=== PATIENT | female | born 1975 | race Caucasian/White ===

== ENCOUNTER 2024-12-13 06:08 | Inpatient (IN) | payer MEDICAID ==
[2024-12-13] VITALS (16 sets, daily range): BP systolic 87–124; BP diastolic 64–80; PULSE 68–118; RESP 13–27; TEMP 36.5–36.8628; O2SAT 88–98
[~2024-12-13] VITALS: Ht 167.6 cm; Wt 77.1 kg
[~2024-12-13 06:08] MED LIST: AMIO100T4 GT; AMLO5TAB6 PO; ATROV3 NS; BISA10SU62 RC; CHLO3800 TP; CRAN450T10 GT; DOCU100T GT; DORZ10DR8 EACHEYE; FAMO-135 PO; GLYC30DR4 EACHEYE; KEPPSOL GT; MOM MT; MULT-1146 GT; SIME80TA15 MT; TOPUD PO; ZINC113C10 TP
[2024-12-13] MEDS ORDERED: LORAZEPAM 2MG/ML UD SYRINGE ONE (06:20)
[2024-12-13] MEDS: LORAZEPAM 2MG/ML UD SYRINGE IV NR (06:22)
[2024-12-13] MEDS: SODIUM CHLORIDE 0.9% 1,000 ML IV ONE (06:26)
[2024-12-13] MEDS: PIPERACILLIN/TAZO 3.375G/50ML 50 ML IV ONE (06:28)
[2024-12-13] MEDS ORDERED: VANCOMYCIN 1G PREMIX 200 ML IV SCH (06:45)
[2024-12-13 06:51] LABS: BASOPHILS % 0.5 % (0.0-2.0); EOSINOPHILS % 1.0 % (0.0-5.0); HEMATOCRIT. 34.9 % (36.0-48.0); HEMOGLOBIN. 11.0 g/dL (12.0-16.0); LYMPHOCYTES % 13.3 % (20.0-50.0); MEAN PLATELET VOLUME 9.8 fl (7.4-10.4); MONOCYTES % 4.4 % (2.0-8.0); NEUTROPHILS % 80.8 % (40.0-76.0); PLATELET 504 x1000/uL (130-400); RED BLOOD CELL COUNT 3.73 mill/uL (4.2-5.4); RED CELL DISTRIBUTION WIDTH 18.5 % (11.6-14.6)
[2024-12-13] MEDS: VANCOMYCIN 1G PREMIX 200 ML IV ONE (07:04)
[2024-12-13] MEDS ORDERED: ONDANSETRON HCL 4MG/2ML INJ IV PRN (07:15)
[2024-12-13 07:20] LABS: BG BASE EXCESS 3.9 mmol/L (-2.0-3.0); BG CARBOXYHEMOGLOBIN 0.1 % (0.5-1.5); BG DEOXYHEMOGLOBIN 1.4 % (0.0-5.0); BG FRACTION INSPIRED OXYGEN 100; BG HCO3 ACT 29.4 mmol/L (21.0-28.0); BG METHEMOGLOBIN 0.6 % (0.5-1.5); BG OXYGEN SATURATION 98.6 % (94.0-98.0); BG OXYHEMOGLOBIN 97.9 % (94.0-98.0); BG PCO2 48.6 mmHg (32.0-45.0); BG PEEP (cmH2O) 5.0 cmH2O; BG PH 7.399 (7.350-7.450); BG PO2 133.4 mmHg (83.0-108.0); BG SAMPLE SITE RIGHT RADIAL; BG TIDAL VOLUME(mL) 450.0 mL; BG TOTAL HEMOGLOBIN 10.7 g/dL (12.0-16.0); BG VENT MODE VENT - AC; BG VENT RATE 20.0 set
[2024-12-13] MEDS: ACETAMINOPHEN 325MG TABLET GT NR (07:29)
[2024-12-13 07:30] LABS: CREATININE 0.8 mg/dL (0.6-1.0); UREA NITROGEN BLOOD 12 mg/dL (9-23)
[2024-12-13 07:32] LABS: ASPARTATE AMINOTRANSFERASE 70 IU/L (<34); BILIRUBIN DIRECT 0.2 mg/dL (<=3.0); BILIRUBIN TOTAL 0.4 mg/dL (0.1-1.0); PROTEIN TOTAL 8.1 g/dL (6.0-8.3)
[2024-12-13 08:12] LABS: INR 1.0
[2024-12-13] MEDS ORDERED: PANTOPRAZOLE SODIUM 40 MG/VIAL IV SCH (09:00)
[2024-12-13] MEDS: METHYLPREDNISOLONE SOD SUCC 40MG/ML (ACT-O-VIAL) IV SCH ×2 (10:00→16:54)
[2024-12-13] MEDS ORDERED: MAGNESIUM/ALUMINUM HYDROXIDE/SIMETHICONE 30ML UDC PO PRN (10:00)
[2024-12-13] MEDS: AMLODIPINE 5MG TABLET PO SCH (10:00)
[2024-12-13] MEDS ORDERED: NALOXONE HCL 0.4MG/ML VIAL IV PRN (10:00)
[2024-12-13] MEDS ORDERED: MORPHINE SULFATE 4 MG/ML INJ (FOR IV/IM USE) IV PRN (10:00)
[2024-12-13] MEDS: PANTOPRAZOLE SODIUM 40 MG/VIAL IV SCH (10:12)
[2024-12-13] MEDS: SODIUM CHLORIDE 0.9% 1,000 ML IV SCH (10:12)
[2024-12-13] MEDS: ENOXAPARIN 40MG/0.4ML SYR SUBCUT SCH (10:13)
[2024-12-13] MEDS: PIPERACILLIN/TAZO 3.375G/50ML 50 ML IV SCH (10:21)
[2024-12-13] MEDS: LEVETIRACETAM 500MG/5ML CUP GT SCH (10:58)
[2024-12-13] MEDS: AMIODARONE 200MG TABLET PO SCH (10:58)
[2024-12-13] MEDS: DOXYCYCLINE 100MG/100ML 100 ML IV SCH ×2 (11:39→21:30)
[2024-12-13] MEDS: DORZOLAMIDE 2% OPHTH 10 ML BOTTLE EACHEYE SCH (13:25)
[2024-12-13] MEDS ORDERED: PIPERACILLIN/TAZO 3.375G/50ML 50 ML IV SCH (14:00)
[2024-12-13 14:50] LABS: CLARITY URINE CLEAR (CLEAR); COLOR URINE YELLOW (YELLOW); GLUCOSE URINE NEGATIVE (NEGATIVE); KETONES URINE NEGATIVE (NEGATIVE); PH URINE 5.5 (4.5-8.0); PROTEIN URINE NEGATIVE (NEGATIVE); SPECIFIC GRAVITY URINE 1.035 (1.005-1.030)
[2024-12-13 14:51] LABS: LEUKOCYTE ESTERASE URINE NEGATIVE (NEGATIVE); NITRITE URINE NEGATIVE (NEGATIVE); OCCULT BLOOD URINE NEGATIVE (NEGATIVE); UROBILINOGEN URINE 0.2 E.U./dL (0.2-1.0)
[2024-12-13 15:03] LABS: *AMPHETAMINES SCREEN URINE NEGATIVE (NEGATIVE); *BARBITURATES SCREEN URINE NEGATIVE (NEGATIVE); *BENZODIAZEPINES SCREEN URINE NEGATIVE (NEGATIVE); *COCAINE SCREEN URINE NEGATIVE (NEGATIVE); METHADONE URINE SCREEN NEGATIVE (NEGATIVE); OPIATES URINE SCREEN NEGATIVE (NEGATIVE); PHENCYCLIDINE URINE SCREEN NEGATIVE (NEGATIVE)
[2024-12-13 15:04] LABS: CANNABINOID URINE SCREEN NEGATIVE (NEGATIVE); ECSTASY MDMA SCREEN URINE NEGATIVE (NEGATIVE)
[2024-12-13] MEDS: FUROSEMIDE 40MG/4ML VIAL IVP NR (16:55)
[2024-12-13] MEDS: IPRATROPIUM/ALBUTEROL 0.5-3(2.5)MG/3ML NEB HHN SCH (20:30)
[2024-12-13] MEDS: BUDESONIDE 0.5MG/2ML NEB HHN SCH (20:31)
[2024-12-13] MEDS ORDERED: ZOLPIDEM TARTRATE 5MG TABLET PO PRN (21:00)
[2024-12-13] MEDS: ONDANSETRON HCL 4MG/2ML INJ IV PRN (21:20)
[2024-12-13] MEDS: LACTULOSE 20G/30ML UDC PO SCH (21:20)
[2024-12-13] MEDS: VANCOMYCIN 1G PREMIX 200 ML IV SCH (21:23)
[2024-12-13 22:55] LABS: CREATINE KINASE MB FRACTION < 0.5 ng/mL (0.5-3.6); TROPONIN I HIGH SENSITIVITY 6 ng/L (3.0-34)
[2024-12-14] VITALS (22 sets, daily range): BP systolic 98–144; BP diastolic 67–95; PULSE 74–102; RESP 2–23; TEMP 36.3–37.6; O2SAT 93–99
[2024-12-14] MEDS: METOCLOPRAMIDE HCL 10MG/2ML VIAL IV SCH (00:40)
[2024-12-14] MEDS: SODIUM CHLORIDE 0.9% FOR INH 3ML VIAL NEB INH SCH (00:44)
[2024-12-14] MEDS: ACETYLCYSTEINE 200MG/ML 20% VIAL 4ML INH SCH (00:45)
[2024-12-14] MEDS: IPRATROPIUM/ALBUTEROL 0.5-3(2.5)MG/3ML NEB HHN NR (02:32)
[2024-12-14] MEDS: CLONIDINE 0.1MG TABLET PO PRN (05:49)
[2024-12-14] MEDS ORDERED: METOCLOPRAMIDE HCL 10MG/2ML VIAL IV SCH (06:00)
[2024-12-14 06:43] LABS: TROPONIN I HIGH SENSITIVITY 7 ng/L (3.0-34)
[2024-12-14 06:44] LABS: HEMATOCRIT. 29.7 % (36.0-48.0); HEMOGLOBIN. 9.6 g/dL (12.0-16.0); MEAN PLATELET VOLUME 9.8 fl (7.4-10.4); PLATELET 397 x1000/uL (130-400); RED BLOOD CELL COUNT 3.19 mill/uL (4.2-5.4); RED CELL DISTRIBUTION WIDTH 18.4 % (11.6-14.6)
[2024-12-14 06:48] LABS: CREATINE KINASE MB FRACTION < 0.5 ng/mL (0.5-3.6)
[2024-12-14 07:31] LABS: INFLUENZA TYPE A Presumptive Negative (Pres. Neg.)
[2024-12-14 07:32] LABS: INFLUENZA TYPE B Presumptive Negative (Pres. Neg.)
[2024-12-14 07:33] LABS: RESPIRATORY SYNCYTIAL VIRUS Not Detected (Not Detectd)
[2024-12-14 09:45] LABS: BG BASE EXCESS 1.9 mmol/L (-2.0-3.0); BG CARBOXYHEMOGLOBIN 0.6 % (0.5-1.5); BG DEOXYHEMOGLOBIN 2.6 % (0.0-5.0); BG FRACTION INSPIRED OXYGEN 90; BG HCO3 ACT 25.5 mmol/L (21.0-28.0); BG METHEMOGLOBIN 0.4 % (0.5-1.5); BG OXYGEN SATURATION 97.4 % (94.0-98.0); BG OXYHEMOGLOBIN 96.4 % (94.0-98.0); BG PCO2 36.0 mmHg (32.0-45.0); BG PEEP (cmH2O) 5.0 cmH2O; BG PH 7.468 (7.350-7.450); BG PO2 90.5 mmHg (83.0-108.0); BG SAMPLE SITE RIGHT RADIAL; BG TIDAL VOLUME(mL) 450.0 mL; BG TOTAL HEMOGLOBIN 10.8 g/dL (12.0-16.0); BG VENT MODE VENT - AC; BG VENT RATE 20.0 set
[2024-12-14 20:49] LABS: LYMPHOCYTES % MANUAL 1.0 % (20.0-60.0); MONOCYTES % MANUAL 8.0 % (2.0-8.0); NEUTROPHILS % MANUAL 91.0 % (45.0-75.0); PLATELET ESTIMATE NORMAL
[2024-12-15] VITALS (20 sets, daily range): BP systolic 122–158; BP diastolic 76–88; PULSE 70–93; RESP 16–24; TEMP 36.9–37.7; O2SAT 92–99
[2024-12-15 07:56] LABS: BASOPHILS % 0.2 % (0.0-2.0); EOSINOPHILS % 0.0 % (0.0-5.0); HEMATOCRIT. 26.5 % (36.0-48.0); HEMOGLOBIN. 8.7 g/dL (12.0-16.0); LYMPHOCYTES % 7.3 % (20.0-50.0); MEAN PLATELET VOLUME 9.1 fl (7.4-10.4); MONOCYTES % 4.3 % (2.0-8.0); NEUTROPHILS % 88.2 % (40.0-76.0); PLATELET 477 x1000/uL (130-400); RED BLOOD CELL COUNT 2.88 mill/uL (4.2-5.4); RED CELL DISTRIBUTION WIDTH 18.4 % (11.6-14.6)
[2024-12-15 08:10] LABS: CREATININE 0.6 mg/dL (0.6-1.0); UREA NITROGEN BLOOD 9 mg/dL (9-23)
[2024-12-15 08:25] LABS: FOLIC ACID (FOLATE) SERUM > 20.00 ng/mL (>5.38)
[2024-12-15 08:46] LABS: VITAMIN B12 SERUM > 2000 pg/mL (211-911)
[2024-12-15] MEDS ORDERED: POTASSIUM CHLORIDE 40 MEQ in DEXT 5% WATER 230 ML IV ONE (09:30)
[2024-12-15] MEDS ORDERED: KCL 20MEQ/100ML X 2 FOR TOTAL KCL 40MEQ/200ML IV SCH (09:30)
[2024-12-15] MEDS: KCL 20MEQ/100ML PREMIX 100 ML IV SCH (11:14)
[2024-12-15] MEDS: MINERAL OIL ENEMA 133ML PR SCH (14:00)
[2024-12-15 14:09] LABS: BG BASE EXCESS 2.3 mmol/L (-2.0-3.0); BG CARBOXYHEMOGLOBIN 0.9 % (0.5-1.5); BG DEOXYHEMOGLOBIN 4.1 % (0.0-5.0); BG FRACTION INSPIRED OXYGEN 70; BG HCO3 ACT 26.7 mmol/L (21.0-28.0); BG METHEMOGLOBIN 0.2 % (0.5-1.5); BG OXYGEN SATURATION 95.9 % (94.0-98.0); BG OXYHEMOGLOBIN 94.8 % (94.0-98.0); BG PCO2 40.9 mmHg (32.0-45.0); BG PEEP (cmH2O) 5.0 cmH2O; BG PH 7.433 (7.350-7.450); BG PO2 76.7 mmHg (83.0-108.0); BG SAMPLE SITE RIGHT RADIAL; BG TIDAL VOLUME(mL) 450.0 mL; BG TOTAL HEMOGLOBIN 10.0 g/dL (12.0-16.0); BG VENT MODE VENT - AC; BG VENT RATE 16.0 set
[2024-12-16] VITALS (25 sets, daily range): BP systolic 113–149; BP diastolic 67–90; PULSE 60–107; RESP 15–30; TEMP 36.5–37.1; O2SAT 93–98
[2024-12-16] MEDS: VANCOMYCIN 750MG/150ML (BAXTER) IV SCH (04:45)
[2024-12-16 07:23] LABS: HEMATOCRIT. 28.8 % (36.0-48.0); HEMOGLOBIN. 9.1 g/dL (12.0-16.0); RED BLOOD CELL COUNT 3.09 mill/uL (4.2-5.4); RED CELL DISTRIBUTION WIDTH 18.7 % (11.6-14.6)
[2024-12-16 07:43] LABS: CREATININE 0.6 mg/dL (0.6-1.0)
[2024-12-16 07:45] LABS: UREA NITROGEN BLOOD 10 mg/dL (9-23)
[2024-12-16 08:15] LABS: LYMPHOCYTES % MANUAL 4.0 % (20.0-60.0); MONOCYTES % MANUAL 5.0 % (2.0-8.0); NEUTROPHILS % MANUAL 91.0 % (45.0-75.0); NUCLEATED RED BLOOD CELLS 1 /100 WBC; PLATELET ESTIMATE INCREASED
[2024-12-16 08:17] LABS: PLATELET 570 x1000/uL (130-400)
[2024-12-16] MEDS: ACETAMINOPHEN 325MG TABLET PO PRN (11:33)
[2024-12-16] MEDS: LACTULOSE 20G/30ML UDC PO NR (16:15)
[2024-12-16] MEDS: NA PHOS,M-B/NA PHOS,DI-BA ENEMA 118ML PR SCH (17:18)
[2024-12-16] MEDS: LACTULOSE 20G/30ML UDC PO SCH (18:15)
[2024-12-16] MEDS: SENNOSIDES/DOCUSATE SOD 8.6/50MG TABLET GT SCH (21:00)
[2024-12-16] MEDS: DOCUSATE SODIUM SUGAR FREE 100MG/10ML UDC NG SCH (21:04)
[2024-12-16] MEDS ORDERED: LACTULOSE 20G/30ML UDC PO SCH (22:00)
[2024-12-17] VITALS (20 sets, daily range): BP systolic 117–199; BP diastolic 69–106; PULSE 62–102; RESP 1–36; TEMP 37–37.6; O2SAT 89–98
[2024-12-17 08:22] LABS: HEMATOCRIT. 29.6 % (36.0-48.0); HEMOGLOBIN. 9.1 g/dL (12.0-16.0); MEAN PLATELET VOLUME 8.8 fl (7.4-10.4); PLATELET 579 x1000/uL (130-400); RED BLOOD CELL COUNT 3.19 mill/uL (4.2-5.4); RED CELL DISTRIBUTION WIDTH 18.4 % (11.6-14.6)
[2024-12-17 08:41] LABS: CREATININE 0.7 mg/dL (0.6-1.0); UREA NITROGEN BLOOD 12 mg/dL (9-23)
[2024-12-17] MEDS: POLYETHYLENE GLYCOL 3350 (17GM) 1 DOSE PACK PO SCH (09:48)
[2024-12-17] MEDS ORDERED: KCL 20MEQ/100ML PREMIX 100 ML IV ONE (10:30)
[2024-12-17] MEDS: LACTULOSE 20G/30ML UDC PO SCH (11:29)
[2024-12-17] MEDS: POTASSIUM CHLORIDE 40MEQ in DEXT 5% WATER 250ML IV SCH (11:30)
[2024-12-17] MEDS: HYDROCODONE/ACETAMINOPHEN 5/325MG TABLET PO PRN (12:48)
[2024-12-17] MEDS: MINERAL OIL ENEMA 133ML PR NR (13:31)
[2024-12-17] MEDS: SIMETHICONE 40 MG/0.6 ML 15ML GT SCH (17:41)
[2024-12-17] MEDS ORDERED: VANCOMYCIN 750MG/150ML (BAXTER) IV SCH (18:00)
[2024-12-17 19:04] LABS: LYMPHOCYTES % MANUAL 8.0 % (20.0-60.0); MONOCYTES % MANUAL 6.0 % (2.0-8.0); NEUTROPHILS % MANUAL 86.0 % (45.0-75.0); NUCLEATED RED BLOOD CELLS 1 /100 WBC; PLATELET ESTIMATE MARKEDLY INCREASED
[2024-12-17] MEDS ORDERED: MAGNESIUM SULFATE 1GM/2ML VIAL IM ONE (20:45)
[2024-12-17] MEDS: SODIUM CHLORIDE 3% FOR INH 4ML NEB INH SCH (20:59)
[2024-12-17] MEDS: KCL 20MEQ/100ML PREMIX 100 ML IV SCH (22:41)
[2024-12-17] MEDS: MAGNESIUM 1G PREMIX 100ML IV SCH (23:14)
[2024-12-18] VITALS (19 sets, daily range): BP systolic 124–166; BP diastolic 80–104; PULSE 50–94; RESP 16–62; TEMP 36.7–38; O2SAT 91–98
[2024-12-18 05:12] LABS: CLARITY URINE TURBID (CLEAR); COLOR URINE YELLOW (YELLOW)
[2024-12-18 05:13] LABS: PH URINE 7.0 (4.5-8.0); SPECIFIC GRAVITY URINE 1.020 (1.005-1.030)
[2024-12-18 05:14] LABS: GLUCOSE URINE NEGATIVE (NEGATIVE); KETONES URINE NEGATIVE (NEGATIVE); NITRITE URINE NEGATIVE (NEGATIVE); OCCULT BLOOD URINE 2+ (NEGATIVE); PROTEIN URINE TRACE (NEGATIVE)
[2024-12-18 05:15] LABS: LEUKOCYTE ESTERASE URINE NEGATIVE (NEGATIVE); UROBILINOGEN URINE 1.0 E.U./dL (0.2-1.0)
[2024-12-18] MEDS: KCL 20MEQ/100ML PREMIX 100 ML IV SCH (05:49)
[2024-12-18 06:11] LABS: CREATININE 0.7 mg/dL (0.6-1.0); UREA NITROGEN BLOOD 9 mg/dL (9-23)
[2024-12-18 06:30] LABS: RBC URINE 15-25 /hpf (0-2)
[2024-12-18 06:31] LABS: AMORPHOUS SEDIMENT URINE 2+ /lpf; BACTERIA URINE NONE SEEN; SQUAMOUS EPITHELIAL CELL URINE NONE SEEN /lpf (RARE/1+)
[2024-12-18] MEDS: ACETAMINOPHEN 650MG/20.3ML UDC PO PRN (15:02)
[2024-12-18] MEDS: POTASSIUM CHLORIDE 20MEQ/PACKET GT NR (23:34)
[2024-12-19] VITALS (22 sets, daily range): BP systolic 93–127; BP diastolic 54–88; PULSE 52–87; RESP 16–22; TEMP 36.5–37.9; O2SAT 94–96
[2024-12-19] MEDS: IPRATROPIUM/ALBUTEROL 0.5-3(2.5)MG/3ML NEB HHN SCH (09:31)
[2024-12-19] MEDS: GUAIFENESIN 200MG/10ML SUGAR FREE UDC PO SCH (13:12)
[2024-12-19] MEDS: ACETYLCYSTEINE 200MG/ML 20% VIAL 4ML INH SCH (15:30)
[2024-12-20] VITALS (21 sets, daily range): BP systolic 116–133; BP diastolic 73–90; PULSE 66–92; RESP 16–21; TEMP 36.8–37.5; O2SAT 92–98
[2024-12-20 16:44] LABS: BG BASE EXCESS 5.3 mmol/L (-2.0-3.0); BG CARBOXYHEMOGLOBIN 0.3 % (0.5-1.5); BG DEOXYHEMOGLOBIN 3.4 % (0.0-5.0); BG FRACTION INSPIRED OXYGEN 80; BG HCO3 ACT 30.0 mmol/L (21.0-28.0); BG METHEMOGLOBIN 0.1 % (0.5-1.5); BG OXYGEN SATURATION 96.6 % (94.0-98.0); BG OXYHEMOGLOBIN 96.2 % (94.0-98.0); BG PCO2 44.4 mmHg (32.0-45.0); BG PEEP (cmH2O) 5.0 cmH2O; BG PH 7.447 (7.350-7.450); BG PO2 83.9 mmHg (83.0-108.0); BG SAMPLE SITE RIGHT RADIAL; BG TIDAL VOLUME(mL) 450.0 mL; BG TOTAL HEMOGLOBIN 9.2 g/dL (12.0-16.0); BG VENT MODE VENT - AC; BG VENT RATE 16.0 set
[2024-12-20 19:00] LABS: HEMATOCRIT. 28.5 % (36.0-48.0); HEMOGLOBIN. 9.1 g/dL (12.0-16.0); MEAN PLATELET VOLUME 8.9 fl (7.4-10.4); PLATELET 490 x1000/uL (130-400); RED BLOOD CELL COUNT 3.05 mill/uL (4.2-5.4); RED CELL DISTRIBUTION WIDTH 18.6 % (11.6-14.6)
[2024-12-20 19:13] LABS: CREATININE 0.6 mg/dL (0.6-1.0)
[2024-12-20 19:14] LABS: UREA NITROGEN BLOOD 9 mg/dL (9-23)
[2024-12-20 19:15] LABS: ASPARTATE AMINOTRANSFERASE 11 IU/L (<34)
[2024-12-20 19:16] LABS: BILIRUBIN TOTAL 0.2 mg/dL (0.1-1.0); PROTEIN TOTAL 6.3 g/dL (6.0-8.3)
[2024-12-20 19:28] LABS: HCG SCREEN NEGATIVE
[2024-12-20 19:34] LABS: LYMPHOCYTES % MANUAL 4.0 % (20.0-60.0); MONOCYTES % MANUAL 4.0 % (2.0-8.0); NEUTROPHILS % MANUAL 92.0 % (45.0-75.0); PLATELET ESTIMATE INCREASED
[2024-12-20 19:49] LABS: HEPATITIS A AB IGM NEGATIVE (Negative); HEPATITIS B CORE AB IGM NEGATIVE (Negative)
[2024-12-20 19:50] LABS: HEPATITIS C AB NON REACTIVE (Neg) (Negative)
[2024-12-20] MEDS: SODIUM CHLORIDE 3% FOR INH 4ML NEB INH SCH (20:38)
[2024-12-21] VITALS (27 sets, daily range): BP systolic 107–153; BP diastolic 68–92; PULSE 67–93; RESP 12–38; TEMP 36.9–37.7; O2SAT 93–98
[2024-12-21] MEDS: FERROUS SULFATE 300MG/5ML UDC GT SCH (09:28)
[2024-12-21] MEDS: ASCORBIC ACID 500 MG TABLET GT SCH (09:28)
[2024-12-21 10:55] LABS: HEMATOCRIT. 28.9 % (36.0-48.0); HEMOGLOBIN. 9.1 g/dL (12.0-16.0); MEAN PLATELET VOLUME 8.4 fl (7.4-10.4); PLATELET 487 x1000/uL (130-400); RED BLOOD CELL COUNT 3.09 mill/uL (4.2-5.4); RED CELL DISTRIBUTION WIDTH 18.5 % (11.6-14.6)
[2024-12-21 11:16] LABS: CREATININE 0.6 mg/dL (0.6-1.0)
[2024-12-21 11:17] LABS: UREA NITROGEN BLOOD 9 mg/dL (9-23)
[2024-12-21] MEDS: KCL 20MEQ/100ML PREMIX 100 ML IV SCH ×2 (12:00→21:49)
[2024-12-21] MEDS: SIMETHICONE 80MG TABLET CHEW GT SCH (14:22)
[2024-12-21] MEDS: DEXT 5%/0.9% NACL KCL 20MEQ/L 1,000 ML IV SCH (16:59)
[2024-12-21] MEDS: DIATR MEGLU/DIATRIZOATE SOLN 30ML PO SCH (18:05)
[2024-12-21] MEDS: METOCLOPRAMIDE HCL 10MG/2ML VIAL IV SCH (21:42)
[2024-12-21] MEDS ORDERED: IOHEXOL-350 100 ML BOTTLE ONE (22:43)
[2024-12-21] MEDS ORDERED: IOHEXOL-300 100 ML BOTTLE ONE (22:44)
[2024-12-22] VITALS (26 sets, daily range): BP systolic 105–134; BP diastolic 71–105; PULSE 76–110; RESP 15–26; TEMP 36.7–37.4; O2SAT 87–99
[2024-12-22 08:48] LABS: BG BASE EXCESS 0.6 mmol/L (-2.0-3.0); BG CARBOXYHEMOGLOBIN 1.2 % (0.5-1.5); BG DEOXYHEMOGLOBIN 7.4 % (0.0-5.0); BG FRACTION INSPIRED OXYGEN 60; BG HCO3 ACT 25.3 mmol/L (21.0-28.0); BG METHEMOGLOBIN 0.3 % (0.5-1.5); BG OXYGEN SATURATION 92.5 % (94.0-98.0); BG OXYHEMOGLOBIN 91.1 % (94.0-98.0); BG PCO2 40.9 mmHg (32.0-45.0); BG PEEP (cmH2O) 8.0 cmH2O; BG PH 7.409 (7.350-7.450); BG PO2 65.4 mmHg (83.0-108.0); BG SAMPLE SITE RIGHT RADIAL; BG TIDAL VOLUME(mL) 450.0 mL; BG TOTAL HEMOGLOBIN 9.8 g/dL (12.0-16.0); BG VENT MODE VENT - AC; BG VENT RATE 16.0 set
[2024-12-22] MEDS: SENNOSIDES 8.6MG TABLET GT SCH (09:06)
[2024-12-22 13:10] LABS: HEMATOCRIT. 28.7 % (36.0-48.0); HEMOGLOBIN. 9.1 g/dL (12.0-16.0); MEAN PLATELET VOLUME 8.8 fl (7.4-10.4); PLATELET 521 x1000/uL (130-400); RED BLOOD CELL COUNT 3.06 mill/uL (4.2-5.4); RED CELL DISTRIBUTION WIDTH 18.8 % (11.6-14.6)
[2024-12-22 13:25] LABS: CREATININE 0.6 mg/dL (0.6-1.0)
[2024-12-22 13:26] LABS: UREA NITROGEN BLOOD < 5 mg/dL (9-23)
[2024-12-22 13:59] LABS: LYMPHOCYTES % MANUAL 12.0 % (20.0-60.0); MONOCYTES % MANUAL 13.0 % (2.0-8.0); NEUTROPHILS % MANUAL 75.0 % (45.0-75.0); PLATELET ESTIMATE INCREASED
[2024-12-22] MEDS: KCL 20MEQ/100ML PREMIX 100 ML IV SCH (15:29)
[2024-12-22 16:22] LABS: EOSINOPHILS % MANUAL 7.0 % (0.0-5.0); LYMPHOCYTES % MANUAL 6.0 % (20.0-60.0); MONOCYTES % MANUAL 7.0 % (2.0-8.0); NEUTROPHILS % MANUAL 80.0 % (45.0-75.0); PLATELET ESTIMATE SLIGHTLY INCREASED
[2024-12-23] VITALS (22 sets, daily range): BP systolic 115–144; BP diastolic 76–94; PULSE 79–103; RESP 0–26; TEMP 36.4–37; O2SAT 94–98
[2024-12-23] MEDS ORDERED: POTASSIUM CHLORIDE 20MEQ/PACKET PO SCH (04:15)
[2024-12-23] MEDS: POTASSIUM CHLORIDE 20MEQ/PACKET PO SCH (09:30)
[2024-12-23 12:56] LABS: HEMATOCRIT. 32.2 % (36.0-48.0); HEMOGLOBIN. 9.7 g/dL (12.0-16.0); MEAN PLATELET VOLUME 8.8 fl (7.4-10.4); PLATELET 519 x1000/uL (130-400); RED BLOOD CELL COUNT 3.42 mill/uL (4.2-5.4); RED CELL DISTRIBUTION WIDTH 18.5 % (11.6-14.6)
[2024-12-23 13:09] LABS: CREATININE 0.5 mg/dL (0.6-1.0); UREA NITROGEN BLOOD < 5 mg/dL (9-23)
[2024-12-23 18:08] LABS: EOSINOPHILS % MANUAL 4.0 % (0.0-5.0); LYMPHOCYTES % MANUAL 11.0 % (20.0-60.0); MONOCYTES % MANUAL 3.0 % (2.0-8.0); MYELOCYTES % 2.0 % (0-0); NEUTROPHILS % MANUAL 80.0 % (45.0-75.0); PLATELET ESTIMATE INCREASED
[2024-12-24] VITALS (20 sets, daily range): BP systolic 105–127; BP diastolic 71–91; PULSE 82–108; RESP 14–30; TEMP 36.9–37.8; O2SAT 92–100
[2024-12-24 07:56] LABS: HEMATOCRIT. 30.4 % (36.0-48.0); HEMOGLOBIN. 9.7 g/dL (12.0-16.0); MEAN PLATELET VOLUME 8.7 fl (7.4-10.4); PLATELET 516 x1000/uL (130-400); RED BLOOD CELL COUNT 3.22 mill/uL (4.2-5.4); RED CELL DISTRIBUTION WIDTH 18.7 % (11.6-14.6)
[2024-12-24 08:03] LABS: CREATININE 0.5 mg/dL (0.6-1.0); UREA NITROGEN BLOOD < 5 mg/dL (9-23)
[2024-12-24 09:55] LABS: BG BASE EXCESS 1.4 mmol/L (-2.0-3.0); BG CARBOXYHEMOGLOBIN 1.0 % (0.5-1.5); BG DEOXYHEMOGLOBIN 4.1 % (0.0-5.0); BG FRACTION INSPIRED OXYGEN 45; BG HCO3 ACT 26.3 mmol/L (21.0-28.0); BG METHEMOGLOBIN 0.0 % (0.5-1.5); BG OXYGEN SATURATION 95.9 % (94.0-98.0); BG OXYHEMOGLOBIN 94.9 % (94.0-98.0); BG PCO2 42.9 mmHg (32.0-45.0); BG PEEP (cmH2O) 5.0 cmH2O; BG PH 7.405 (7.350-7.450); BG PO2 77.6 mmHg (83.0-108.0); BG SAMPLE SITE RIGHT RADIAL; BG TIDAL VOLUME(mL) 450.0 mL; BG TOTAL HEMOGLOBIN 9.9 g/dL (12.0-16.0); BG VENT MODE VENT - AC; BG VENT RATE 16.0 set
[2024-12-24] MEDS: KCL 20MEQ/100ML PREMIX 100 ML IV SCH (10:03)
[2024-12-25] VITALS (25 sets, daily range): BP systolic 113–132; BP diastolic 77–92; PULSE 68–123; RESP 16–29; TEMP 36.7–38.3; O2SAT 90–100
[2024-12-25 07:14] LABS: HEMATOCRIT. 33.1 % (36.0-48.0); HEMOGLOBIN. 10.5 g/dL (12.0-16.0); MEAN PLATELET VOLUME 9.0 fl (7.4-10.4); PLATELET 621 x1000/uL (130-400); RED BLOOD CELL COUNT 3.51 mill/uL (4.2-5.4); RED CELL DISTRIBUTION WIDTH 18.9 % (11.6-14.6)
[2024-12-25 07:49] LABS: CREATININE 0.7 mg/dL (0.6-1.0); UREA NITROGEN BLOOD < 5 mg/dL (9-23)
[2024-12-25 07:50] LABS: ASPARTATE AMINOTRANSFERASE 11 IU/L (<34)
[2024-12-25 07:51] LABS: BILIRUBIN DIRECT < 0.1 mg/dL (<=3.0); BILIRUBIN TOTAL < 0.2 mg/dL (0.1-1.0); PROTEIN TOTAL 6.7 g/dL (6.0-8.3)
[2024-12-25] MEDS ORDERED: IPRATROPIUM/ALBUTEROL 0.5-3(2.5)MG/3ML NEB HHN PRN (17:00)
[2024-12-25 19:11] LABS: EOSINOPHILS % MANUAL 4.0 % (0.0-5.0); LYMPHOCYTES % MANUAL 12.0 % (20.0-60.0); MONOCYTES % MANUAL 7.0 % (2.0-8.0); NEUTROPHILS % MANUAL 77.0 % (45.0-75.0); PLATELET ESTIMATE INCREASED
[2024-12-25] MEDS: IPRATROPIUM/ALBUTEROL 0.5-3(2.5)MG/3ML NEB HHN SCH (19:48)
[2024-12-25 20:16] LABS: EOSINOPHILS % MANUAL 5.0 % (0.0-5.0); LYMPHOCYTES % MANUAL 19.0 % (20.0-60.0); MONOCYTES % MANUAL 5.0 % (2.0-8.0); NEUTROPHILS % MANUAL 71.0 % (45.0-75.0); PLATELET ESTIMATE INCREASED
[2024-12-26] VITALS (23 sets, daily range): BP systolic 114–133; BP diastolic 81–102; PULSE 91–127; RESP 0–51; TEMP 36.4–37.9; O2SAT 91–100
[2024-12-27] VITALS (26 sets, daily range): BP systolic 102–131; BP diastolic 73–94; PULSE 78–109; RESP 16–24; TEMP 36.2–37.1; O2SAT 94–99
[2024-12-27 10:24] LABS: BG BASE EXCESS -1.2 mmol/L (-2.0-3.0); BG CARBOXYHEMOGLOBIN 0.8 % (0.5-1.5); BG DEOXYHEMOGLOBIN 4.9 % (0.0-5.0); BG FRACTION INSPIRED OXYGEN 40; BG HCO3 ACT 23.3 mmol/L (21.0-28.0); BG METHEMOGLOBIN 0.3 % (0.5-1.5); BG OXYGEN SATURATION 95.0 % (94.0-98.0); BG OXYHEMOGLOBIN 94.0 % (94.0-98.0); BG PCO2 38.4 mmHg (32.0-45.0); BG PEEP (cmH2O) 5.0 cmH2O; BG PH 7.401 (7.350-7.450); BG PO2 72.2 mmHg (83.0-108.0); BG SAMPLE SITE LEFT RADIAL; BG TIDAL VOLUME(mL) 450.0 mL; BG TOTAL HEMOGLOBIN 10.8 g/dL (12.0-16.0); BG VENT MODE VENT - AC; BG VENT RATE 16.0 set
[2024-12-28] VITALS (22 sets, daily range): BP systolic 123–145; BP diastolic 82–98; PULSE 91–107; RESP 15–21; TEMP 36.2–36.9; O2SAT 95–100
[2024-12-28 05:47] LABS: CREATININE 0.5 mg/dL (0.6-1.0); UREA NITROGEN BLOOD 7 mg/dL (9-23)
[2024-12-28 05:49] LABS: ASPARTATE AMINOTRANSFERASE 13 IU/L (<34); BILIRUBIN TOTAL < 0.2 mg/dL (0.1-1.0); INR 0.9; PHOSPHORUS 2.3 mg/dL (2.5-4.9)
[2024-12-28 05:50] LABS: PROTEIN TOTAL 6.6 g/dL (6.0-8.3)
[2024-12-28 06:07] LABS: BASOPHILS % 1.3 % (0.0-2.0); EOSINOPHILS % 3.8 % (0.0-5.0); HEMATOCRIT. 32.0 % (36.0-48.0); HEMOGLOBIN. 10.2 g/dL (12.0-16.0); LYMPHOCYTES % 16.7 % (20.0-50.0); MEAN PLATELET VOLUME 9.0 fl (7.4-10.4); MONOCYTES % 10.0 % (2.0-8.0); NEUTROPHILS % 68.2 % (40.0-76.0); PLATELET 589 x1000/uL (130-400); RED BLOOD CELL COUNT 3.37 mill/uL (4.2-5.4); RED CELL DISTRIBUTION WIDTH 19.4 % (11.6-14.6)
[2024-12-28 11:03] LABS: BG BASE EXCESS -1.7 mmol/L (-2.0-3.0); BG CARBOXYHEMOGLOBIN 0.2 % (0.5-1.5); BG DEOXYHEMOGLOBIN 2.5 % (0.0-5.0); BG FRACTION INSPIRED OXYGEN 40; BG HCO3 ACT 22.6 mmol/L (21.0-28.0); BG METHEMOGLOBIN 0.3 % (0.5-1.5); BG OXYGEN SATURATION 97.5 % (94.0-98.0); BG OXYHEMOGLOBIN 97.0 % (94.0-98.0); BG PCO2 37.0 mmHg (32.0-45.0); BG PEEP (cmH2O) 5.0 cmH2O; BG PH 7.404 (7.350-7.450); BG PO2 93.2 mmHg (83.0-108.0); BG SAMPLE SITE RIGHT RADIAL; BG TIDAL VOLUME(mL) 450.0 mL; BG TOTAL HEMOGLOBIN 11.7 g/dL (12.0-16.0); BG TOTAL RESPIRATORY RATE 18 b/min; BG VENT MODE VENT - AC; BG VENT RATE 16.0 set
[2024-12-29] VITALS (21 sets, daily range): BP systolic 107–142; BP diastolic 74–90; PULSE 87–114; RESP 15–29; TEMP 36.2–37.7; O2SAT 93–100
[2024-12-29] MEDS: PIPERACILLIN/TAZO 3.375G/50ML 50 ML IV SCH (14:22)
== END 2024-12-29 23:15 | DRG 720 ==
LOC: ER 06:08 → 5EST 07:32 → ENRESERV 07:50
PROVIDERS: ADMIT Internal Medicine; ATTEND Internal Medicine
PROC: 5A1955Z Respiratory Ventilation, Greater than 96 Consecutive Hours (ICD-10-PCS; principal; 2024-12-13)
PROC: 0B21XFZ Change Tracheostomy Device in Trachea, External Approach (ICD-10-PCS; 2024-12-13)
DX: A41.9 Sepsis, unspecified organism (principal); J95.851 Ventilator associated pneumonia; J96.21 Acute and chronic respiratory failure with hypoxia; J69.0 Pneumonitis due to inhalation of food and vomit; G93.40 Encephalopathy, unspecified; Z99.11 Dependence on respirator [ventilator] status; D63.8 Anemia in other chronic diseases classified elsewhere; E87.4 Mixed disorder of acid-base balance; E87.3 Alkalosis; J68.0 Bronchitis and pneumonitis due to chemicals, gases, fumes and vapors; Z93.0 Tracheostomy status; G40.909 Epilepsy, unspecified, not intractable, without status epilepticus; E11.9 Type 2 diabetes mellitus without complications; I10 Essential (primary) hypertension; K56.41 Fecal impaction; Z20.822 Contact with and (suspected) exposure to COVID-19; K80.20 Calculus of gallbladder without cholecystitis without obstruction; R74.01 Elevation of levels of liver transaminase levels; T59.891A Toxic effect of other specified gases, fumes and vapors, accidental (unintentional), initial encounter; T47.4X6A Underdosing of other laxatives, initial encounter; Y92.238 Other place in hospital as the place of occurrence of the external cause; E87.6 Hypokalemia; E61.1 Iron deficiency; Y92.89 Other specified places as the place of occurrence of the external cause; Z93.1 Gastrostomy status; Z98.2 Presence of cerebrospinal fluid drainage device; Z91.138 Patient's unintentional underdosing of medication regimen for other reason; Z86.73 Personal history of transient ischemic attack (TIA), and cerebral infarction without residual deficits
CPT/HCPCS: 31720; 36415; 36600; 71045; 74018; 74177; 76700; 80048; 80053; 80076; 80202; 80305; 81003; 82140; 82375; 82550; 82553; 82607; 82728; 82746; 82805; 82962; 83036; 83540; 83550; 83605; 83735; 83880; 84100; 84132; 84145; 84443; 84466; 84484; 84703; 85025; 85044; 86705; 86709; 87070; 87077; 87186; 87340; 87420; 87426; 87804; 93005; 93970; 94002; 94003; 94070; 94640; 94664; 94668; 96365; 96367; 96375; 99291; A4606; J1650; J1938; J2060; J2405; J2470; J2543; J2765; J2919; J3373; J3475; J3480; J3490; J7030; J7060; J7608; J7626; Q9963; Q9967